=== PATIENT | male | born 1930 | race Caucasian/White ===

== ENCOUNTER 2016-12-30 11:39 | Emergency (ER) | payer OTHER ==
[~2016-12-30 11:39] MED LIST: ASPIRIN325 MG PO; CALCIUM 600 +1 EAC1 PO; CHOLESTROL MED; FISH OIL 1,0001 EAC7 PO; GLUCOSAMINE-CH1 EA35 PO; HTN MED; KEFLEX500 MG PO; NORVASC2.5 MG PO; PRAVACHOL40 M1 PO; ROGAINE TP; VITAMIN D50000 UNI1 PO; ZANTAC300 MG PO; [UNRECOGNIZED DRUG - REMARK]; [UNRECOGNIZED DRUG - REMARK]
== END 2016-12-30 12:30 | disposition left against medical advice (07) ==
LOC: EME 11:39
DX: R10.9 Unspecified abdominal pain (principal); Z53.21 Procedure and treatment not carried out due to patient leaving prior to being seen by health care provider